=== PATIENT | male | born 1980 | race Caucasian/White ===

== ENCOUNTER 2019-12-03 17:42 | Emergency (ER) | payer OTHER ==
[~2019-12-03] VITALS: Ht 182.9 cm; Wt 170.1 kg
[~2019-12-03 17:42] MED LIST: ACID CONTROLLER20 MG PO; ALLOPURINOL 10100 M1 PO; ALLOPURINOL 30300 M1 PO; APAP/CODEINE ELI5 M1 OR; ASPIRIN325 PO; AZITHROMYCIN 2250 MG PO; BACTRIM DS TAB1 EACH PO; BENADRYL25 MG PO; CLARITIN-D 24 H1 TA1 PO; COUMADIN5 MG PO; COUMADIN7.5 MG PO; DOXYCYCLINE 10100 M2 PO; DOXYCYCLINE 10100 MG PO; ENDOCET 5-3251 EACH PO; ENOXAPARIN150 MG/1 M SQ; FENTANYL1 EAC1 TD; FLONASE 0.05%50 MCG NASAL; FLORINEF ACETA0.1 MG PO; FLOXIN OTI0.3 %/5 M1 OT; IBUPROFEN 800800 M1 PO; INDOMETHACIN 2525 MG PO; LAXATIVE PEG 3317 GM PO; LOVENOX100 MG/1 M SQ; METAMUCIL WAFER1 PKT PO; NAPROSYN250 MG PO; NORCO 5-325 TA1 EACH PO; PERCOCET 10-321 EACH PO; PERCOCET 5-3251 EACH PO; PREDNISONE 20 M20 MG PO; PREDNISONE50 MG PO; PROAIR HFA8.5 GM IH; PROBENECID-COL1 EACH PO; TIZANIDINE HCL 22 MG PO; TUSSIONEX PENN473 ML PO; TYLENOL325 MG PO; VIBRAMYCIN 100100 MG PO; XARELTO20 MG PO; ZPAK PO
[2019-12-03] MEDS ORDERED: XARELTO20 MG PO (18:31)
[2019-12-03] MEDS ORDERED: ALLOPURINOL 30300 M1 PO (18:31)
[2019-12-03] MEDS ORDERED: LISINOPRIL-HCT1 EACH PO (18:31)
[2019-12-03] MEDS ORDERED: FUROSEMIDE 20 M20 M1 PO (18:31)
[2019-12-03] MEDS ORDERED: NORCO 5-325 TA1 EAC2 PO (18:56)
[2019-12-03 19:20] VITALS: BP 106/56
== END 2019-12-03 21:19 | disposition home or self-care (01) ==
LOC: ER 17:42
DX: M25.561 Pain in right knee (principal); M10.9 Gout, unspecified; Z90.49 Acquired absence of other specified parts of digestive tract; Z90.89 Acquired absence of other organs; Z79.899 Other long term (current) drug therapy; Z88.0 Allergy status to penicillin; Z88.1 Allergy status to other antibiotic agents